=== PATIENT | female | born 1965 | race Two or more races ===

== ENCOUNTER 2016-05-29 10:55 | Emergency (ER) | payer MEDICAID ==
[2016-05-29] MEDS ORDERED: ONDANSETRON 4 MG ODT TAB ONE (11:48)
[2016-05-29] MEDS ORDERED: HYDROCODONE/ACETAMINOPHEN 5/325MG TABLET ONE (11:48)
[2016-05-29 11:58] LABS: SPECIFIC GRAVITY 1.015 (1.001-1.030); URINE BILIRUBIN NEGATIVE (NEGATIVE); URINE BLOOD 4+ (NEGATIVE); URINE GLUCOSE (UA) NEGATIVE (NEGATIVE); URINE LEUKOCYTE ESTERASE 2+ (NEGATIVE); URINE NITRITE NEGATIVE (NEGATIVE); URINE PROTEIN 1+ (NEGATIVE); URINE UROBILINOGEN NORMAL (0-1 mg/dl)
[2016-05-29 12:10] LABS: URINE APPEARANCE HAZY; URINE COLOR YELLOW
[2016-05-29 12:20] LABS: URINE WBC 50-80 /hpf
[2016-05-29 12:21] LABS: URINE BACTERIA 1+ BACILLI; URINE EPITHELIAL CELLS FEW /hpf
== END 2016-05-29 13:15 | disposition home or self-care (01) ==
LOC: ED 10:55
DX: N39.0 Urinary tract infection, site not specified (principal); E03.9 Hypothyroidism, unspecified
CPT/HCPCS: 87086; 87186; 81001; 99283 ×2; A9270 ×2